=== PATIENT | female | born 2000 | race American Indian/Alaskan Native ===

== ENCOUNTER 2019-03-09 20:47 | Emergency (ER) | payer OTHER ==
[2019-03-09 21:26] VITALS: BP 115/74
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
--- NOTE | 2019-03-09 23:01 | XRay Report ---
LUMBAR SPINE 3 VIEWS. INDICATION / CLINICAL INFORMATION: pain COMPARISON: None available. FINDINGS: BONES / JOINT(S): No acute fracture or subluxation. No significant arthritis. SOFT TISSUES: No significant abnormality. ADDITIONAL FINDINGS: None. Signer Name: Shashi Trinidad MD Signed: 03/09/2019 10:57 PM Workstation Name: [id number]
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
== END 2019-03-10 00:46 | disposition home or self-care (01) ==
LOC: ED 20:47
DX: M25.511 Pain in right shoulder (principal); M54.5 Low back pain; M25.561 Pain in right knee; Z79.899 Other long term (current) drug therapy; V49.49XA Driver injured in collision with other motor vehicles in traffic accident, initial encounter; Y93.89 Activity, other specified; Y92.89 Other specified places as the place of occurrence of the external cause; Y99.8 Other external cause status
CPT/HCPCS: 72040; 72100